=== PATIENT | female | born 1965 | race Caucasian/White ===

== ENCOUNTER 2022-03-23 12:02 | Emergency (ER) | payer OTHER ==
--- NOTE | 2022-03-23 12:35 | ERPHSYRPT ---
- History of Present Illness Time Seen by Provider: 03/23/22 12:15 Patient Subjective Stated Complaint: Pt states "I feel really odd. I feel like I am walking sideways and I just feel odd. My head hurts now and I had them take my blood pressure and it was high." Triage Nursing Assessment: Pt presented alert and oriented X 3, skin pwd pt ambulates with an upright steady gait, able to speak in clear full setences pt in no apparent respiratory distress. Physician History: 56 years old female presented in the ER with feeling sudden onset of vertiginous and walking with tendency to be on the left sideways started almost an hour prior to arrival when she got out of the car. She was also generally shaky with lack of energy and feeling of hollow inside. Patient checked her blood pressure it was 150/105. She started to have some chest discomfort with tightness/pres sure and also having headache 2. Denies any difficulty breathing. Denies any visual disturbance, focal numbness tingling or weakness. Patient reports she walked out of her car on presentation in the ER and her symptoms are much improved. On my evaluation patient is almost back to her normal. Patient denies any history of anxiety/panic attacks but is awfully anxious. Denies any medication/drug use. Timing/Duration: today, sudden, improved Severity: moderate Associated Symptoms: headaches Allergies/Adverse Reactions: No Known Drug Allergies Allergy (Verified 03/23/22 12:09) Home Medications: Aspirin [Aspirin EC] 81 mg PO DAILY 03/23/22 [History] Hx Tetanus, Diphtheria Vaccination/Date Given: No Hx Influenza Vaccination/Date Given: No Hx Pneumococcal Vaccination/Date Given: No Immunizations Up to Date: Yes Travel Risk - International Travel Have you traveled outside of the country in past 3 weeks: No - Coronavirus Screening Are you exhibiting any of the following symptoms?: No Close contact with a COVID-19 positive Pt in past 14-21 Days: No - Vaccine Status Have you recieved a Covid-19 vaccination: Yes Hand Cultivator: Moderna - Vaccination Dates Date of 2cond Vaccination (if applicable): 2020 - Review of Systems Constitutional: Fatigue Eyes: No Symptoms Ears, Nose, & Throat: No Symptoms Respiratory: No Symptoms Cardiac: Chest Pain, Palpitations Abdominal/Gastrointestinal: No Symptoms Genitourinary Symptoms: No Symptoms Musculoskeletal: No Symptoms Skin: No Symptoms Neurological: Dizziness, Headache Psychological: Anxiety Endocrine: No Symptoms Hematologic/Lymphatic: No Symptoms Immunological/Allergic: No Symptoms - Past Medical History Pertinent Past Medical History: No - Past Surgical History Past Surgical History: Yes Other Surgical History: tubes. D & C. ruptured implants. T and A - Social History Smoking Status: Current every day smoker How long have you smoked: years Exposure to second hand smoke: Yes Drug Use: none Patient Lives Alone: Yes - Nursing Vital Signs Nursing Vital Signs: Initial Vital Signs Temperature 98.5 F 03/23/22 12:03 Pulse Rate 90 03/23/22 12:03 Respiratory Rate 24 03/23/22 12:03 Blood Pressure 169/82 03/23/22 12:03 O2 Sat by Pulse Oximetry 99 03/23/22 12:03 Pain Scale Pain Intensity 0 - Physical Exam General Appearance: no apparent distress, alert, anxiety Eye Exam: PERRL/EOMI, eyes nml inspection Ears, Nose, Throat Exam: normal ENT inspection, TMs normal, pharynx normal, moist mucous membranes Neck Exam: normal inspection, non-tender, supple, full range of motion Respiratory Exam: normal breath sounds, lungs clear Cardiovascular Exam: regular rate/rhythm, normal heart sounds Gastrointestinal/Abdomen Exam: soft, normal bowel sounds, No tenderness Back Exam: normal inspection, normal range of motion Extremity Exam: normal inspection, normal range of motion, pelvis stable Neurologic Exam: alert, oriented x 3, cooperative, 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 II-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 nml as tested, nml cerebellar function, nml station & gait, sensation nml, No normal mood/affect, No motor deficits, No sensory deficit Skin Exam: normal color SpO2 Interpretation: normal SpO2: 99 O2 Delivery: Room Air - Course EKG Interpreted by Me: RATE (75), Sinus Rhythm, NORMAL AXIS, NORMAL INTERVALS, NORMAL QRS Ordered Tests: Active Orders 24 hr Category Date Time Status Electrical Test Engineer STAT Care 03/23/22 12:34 Active EKG-ER Only STAT Care 03/23/22 12:33 Active IV Insertion STAT Care 03/23/22 12:33 Active CHEST 1 VIEW (PORTABLE) Stat Exams 03/23/22 12:34 Completed HEAD WITHOUT CONTRAST [CT] Stat Exams 03/23/22 12:33 Completed CBC W DIFF Stat Lab 03/23/22 12:40 Completed CMP Stat Lab 03/23/22 12:40 Completed TROPONIN Q3H Lab 03/23/22 12:40 Completed TROPONIN Q3H Lab 03/23/22 15:45 Ordered TROPONIN Q3H Lab 03/23/22 18:45 Ordered TROPONIN Q3H Lab 03/23/22 21:45 Ordered TROPONIN Q3H Lab 03/24/22 00:45 Ordered Urine Triage Profile Stat Lab 03/23/22 13:10 Completed Medication Summary Discontinued Medications Generic Name Dose Route Start Last Admin Trade Name Freq PRN Reason Stop Dose Admin Lorazepam 1 mg 03/23/22 13:07 03/23/22 13:11 Lorazepam 1 Mg Tablet PO 03/23/22 13:08 Not Given STAT ONE Lab/Rad Data: Laboratory Result Diagrams 03/23/22 12:40 03/23/22 12:40 Laboratory Results 03/23/22 03/23/22 03/23/22 Range/Units 13:10 12:40 12:40 WBC (4.0-10.5) K/mm3 RBC (4.1-5.4) M/mm3 Hgb (12.0-16.0) gm/dl Hct (35-47) % MCV (78-100) fl MCH (26-32) pg MCHC (32-36) g/dl RDW (11.5-14.0) % Plt Count (150-450) K/mm3 MPV (7.5-11.0) fl Gran % (36.0-66.0) % Eos # (Auto) (0-0.5) Absolute Lymphs (auto) (1.0-4.6) Absolute Monos (auto) (0.0-1.3) Lymphocytes % (24.0-44.0) % Monocytes % (0.0-12.0) % Eosinophils % (0.00-5.0) % Basophils % (0.0-0.4) % Absolute Granulocytes (1.4-6.9) Basophils # (0-0.4) Sodium 144 (137-145) mmol/L Potassium 3.6 (3.5-5.1) mmol/L Chloride 105 (98-107) mmol/L Carbon Dioxide 29 (22-30) mmol/L Anion Gap 13.9 (5-15) MEQ/L BUN 12 (7-17) mg/dL Creatinine 0.58 (0.52-1.04) mg/dL Estimated GFR > 60.0 ML/MIN Glucose 103 (74-106) mg/dL Calcium 9.8 (8.4-10.2) mg/dL Total Bilirubin 0.50 (0.2-1.3) mg/dL AST 30 (14-36) U/L ALT 19 (0-35) U/L Alkaline Phosphatase 85 (38-126) U/L Troponin I < 0.012 (0.000-0.034) ng/mL Serum Total Protein 7.6 (6.3-8.2) g/dL Albumin 4.5 (3.5-5.0) g/dL Urine Opiates Level NEGATIVE (NEGATIVE) Ur Methadone NEGATIVE (NEGATIVE) Urine Barbiturates NEGATIVE (NEGATIVE) Ur Phencyclidine (PCP) NEGATIVE (NEGATIVE) Urine Amphetamine NEGATIVE (NEGATIVE) U Benzodiazepine Level NEGATIVE (NEGATIVE) Urine Cocaine NEGATIVE (NEGATIVE) Urine Marijuana (THC) NEGATIVE (NEGATIVE) 03/23/22 Range/Units 12:40 WBC 7.8 (4.0-10.5) K/mm3 RBC 4.41 (4.1-5.4) M/mm3 Hgb 14.9 (12.0-16.0) gm/dl Hct 43.5 (35-47) % MCV 98.6 (78-100) fl MCH 33.8 H (26-32) pg MCHC 34.3 (32-36) g/dl RDW 12.6 (11.5-14.0) % Plt Count 205 (150-450) K/mm3 MPV 11.8 H (7.5-11.0) fl Gran % 56.1 (36.0-66.0) % Eos # (Auto) 0.17 (0-0.5) Absolute Lymphs (auto) 2.45 (1.0-4.6) Absolute Monos (auto) 0.78 (0.0-1.3) Lymphocytes % 31.4 (24.0-44.0) % Monocytes % 10.0 (0.0-12.0) % Eosinophils % 2.2 (0.00-5.0) % Basophils % 0.3 (0.0-0.4) % Absolute Granulocytes 4.39 (1.4-6.9) Basophils # 0.02 (0-0.4) Sodium (137-145) mmol/L Potassium (3.5-5.1) mmol/L Chloride (98-107) mmol/L Carbon Dioxide (22-30) mmol/L Anion Gap (5-15) MEQ/L BUN (7-17) mg/dL Creatinine (0.52-1.04) mg/dL Estimated GFR ML/MIN Glucose (74-106) mg/dL Calcium (8.4-10.2) mg/dL Total Bilirubin (0.2-1.3) mg/dL AST (14-36) U/L ALT (0-35) U/L Alkaline Phosphatase (38-126) U/L Troponin I (0.000-0.034) ng/mL Serum Total Protein (6.3-8.2) g/dL Albumin (3.5-5.0) g/dL Urine Opiates Level (NEGATIVE) Ur Methadone (NEGATIVE) Urine Barbiturates (NEGATIVE) Ur Phencyclidine (PCP) (NEGATIVE) Urine Amphetamine (NEGATIVE) U Benzodiazepine Level (NEGATIVE) Urine Cocaine (NEGATIVE) Urine Marijuana (THC) (NEGATIVE) - Progress Progress: improved Progress Note: 03/23/22 14:23 56 years old is evaluated for some headache with vertigo symptoms and chest discomfort along with elevated pressure. Patient has nonfocal neuro exam throughout her stay in the ER. Was very anxious on presentation, she is thoroughly counseled, offered Ativan which she refused. On reevaluation she is feeling back to normal. Blood pressure is better in 130s/140s systolic. Not tachypneic or tachycardic. Not hypoxic. No chest pain. Ambulated in the ER without any limitation. Part of her symptoms are more often secondary to anxiety, thoroughly counseled and outpatient follow-up recommended. Discussed signs symptoms of worsening needing return to ER which she seems understanding. 03/23/22 14:26 Counseled pt/family regarding: lab results, diagnosis, need for follow-up, rad results, smoking cessation - Departure Departure Disposition: Home Clinical Impression: Anxiety, Headache Condition: Stable Critical Care Time: No Referrals: CHIQUIS GLASS MD [Primary Care Provider] - Follow up/PCP as directed (1-2 days for reevaluation) Instructions: High Blood Pressure (DC), Anxiety, Adult (DC) Additional Instructions: Monitor your blood pressure regularly, keep a log and follow-up with primary care for reevaluation. Return to ER for having headache, numbness tingling weakness, difficulty ambulation, chest pain palpitations or shortness of breath.
[2022-03-23 13:01] LABS: Absolute Neutrophil Ct (ANC) 4.39 (1.4-6.9); Basophil (Absolute #) 0.02 (0-0.4); Eosinophil % 2.2 % (0.00-5.0); Eosinophil (Absolute #) 0.17 (0-0.5); Hematocrit 43.5 % (35-47); Hemoglobin 14.9 gm/dl (12.0-16.0); Lymphocyte (Absolute #) 2.45 (1.0-4.6); Lymphocytes % 31.4 % (24.0-44.0); Mean Cell Volume 98.6 fl (78-100); Mean Corpuscular Hemoglobin 33.8 pg (26-32); Mean Corpuscular Hgb Concent. 34.3 g/dl (32-36); Mean Platelet Volume 11.8 fl (7.5-11.0); Monocyte (Absolute #) 0.78 (0.0-1.3); Neutrophil % 56.1 % (36.0-66.0); Platelet Count 205 K/mm3 (150-450); Red Blood Count 4.41 M/mm3 (4.1-5.4); Red Cell Distribution Width 12.6 % (11.5-14.0); White Blood Count 7.8 K/mm3 (4.0-10.5)
--- NOTE | 2022-03-23 13:03 | XRAY ---
Indication: Headache. Elevated blood pressure. Multiple contiguous axial images obtained through the head without contrast. Comparison: None Normal appearing brain parenchyma, ventricles, and bony calvarium for patient's age. Visualized paranasal sinuses and mastoid air cells are clear. Impression: Normal CT head without contrast exam.
--- NOTE | 2022-03-23 13:03 | XRAY ---
Indication: Elevated blood pressure. Comparison: None Portable apical lordotic chest demonstrates normal heart, lungs, and bony thorax with incidental bilateral breast implants.
[2022-03-23] MEDS ORDERED: Ativan 1 MG PO ONE (13:07)
[2022-03-23 13:13] LABS: ALBUMIN 4.5 g/dL (3.5-5.0); ALKALINE PHOSPHATASE 85 U/L (38-126); ANION GAP 13.9 MEQ/L (5-15); BLOOD UREA NITROGEN 12 mg/dL (7-17); CHLORIDE 105 mmol/L (98-107); Calcium 9.8 mg/dL (8.4-10.2); Carbon Dioxide 29 mmol/L (22-30); Creatinine 1 0.58 mg/dL (0.52-1.04); EST GLOMERULAR FILTRATION RATE > 60.0 ML/MIN; Glucose 103 mg/dL (74-106); Potassium 3.6 mmol/L (3.5-5.1); SGOT/AST 30 U/L (14-36); SGPT/ALT 19 U/L (0-35); SODIUM 144 mmol/L (137-145); Total Protein 7.6 g/dL (6.3-8.2)
[2022-03-23 13:33] LABS: Amphetamine,Urine NEGATIVE (NEGATIVE); Barbiturate,Urine NEGATIVE (NEGATIVE); Benzodiazepine,Urine NEGATIVE (NEGATIVE); Cocaine,Urine NEGATIVE (NEGATIVE); Methadone,Urine NEGATIVE (NEGATIVE); Opiate,Urine NEGATIVE (NEGATIVE); PCP,Urine NEGATIVE (NEGATIVE); THC,Urine NEGATIVE (NEGATIVE)
[2022-03-23 14:39] VITALS: BP 143/65; PULSE 81; O2SAT 97
== END 2022-03-23 14:39 | disposition home or self-care (01) ==
LOC: ED 12:02
DX: F41.9 Anxiety disorder, unspecified (principal); R51.9 Headache, unspecified; R42 Dizziness and giddiness; R03.0 Elevated blood-pressure reading, without diagnosis of hypertension; Z72.0 Tobacco use
CPT/HCPCS: 36000; 36415; 70450; 71045; 80053; 80307; 84484; 85025; 93005; 93041; 99284